=== PATIENT | female | born 1985 | race Caucasian/White ===

== ENCOUNTER 2017-04-28 15:18 | Emergency (ER) | payer OTHER ==
[2017-04-28] MEDS ORDERED: TOPICAL SKIN ADHESIVE 1 EACH AMP TOPICAL ONE (16:21)
[2017-04-28] MEDS ORDERED: GELATIN SPONGE,ABSORB (SMALL) 1 EACH SPONGE TOPICAL STA (16:36)
--- NOTE | 2017-04-28 16:44 | ED ---
Wound/Laceration HPI - General Chief Complaint: Wound/Laceration Stated Complaint: finger lac Time Seen by Provider: 04/28/17 16:04 Source: patient, RN notes reviewed, old records reviewed Mode of arrival: ambulatory Limitations: no limitations - History of Present Illness Initial Comments: This is a 31 year old female with right middle finger tip laceration from cutting food for dinner with a sharp knife. She reports she is , and that she is up to date on her tetanus shot. She reports it did not cut the nail. She states she has full range of motion of the finger. She reports full sensation in her hands and finger tips. - Related Data Previous Rx's Medication Instructions Recorded Ibuprofen [Motrin] 600 mg PO Q6HR PRN #20 tab 09/15/16 Allergies Allergy/AdvReac Type Severity Reaction Status Date / Time pumpkin Allergy Unknown Verified 04/28/17 15:22 pollen Allergy Unknown Uncoded 04/28/17 15:22 Review of Systems ROS Statement: Those systems with pertinent positive or pertinent negative responses have been documented in the HPI. ROS Other: All systems not noted in ROS Statement are negative. Constitutional: Denies: chills Eyes: Denies: eye pain ENT: Denies: ear pain Respiratory: Denies: cough, dyspnea Cardiovascular: Denies: chest pain, palpitations Endocrine: Denies: fatigue Gastrointestinal: Denies: abdominal pain, nausea Genitourinary: Denies: dysuria Musculoskeletal: Denies: back pain Skin: Denies: rash Neurological: Denies: headache Psychiatric: Denies: anxiety Hematological/Lymphatic: Denies: easy bleeding Past Medical History Past Medical History: No Reported History History of Any Multi-Drug Resistant Organisms: None Reported Past Surgical History: No Surgical Hx Reported Past Psychological History: No Psychological Hx Reported Smoking Status: Never smoker Past Alcohol Use History: None Reported Past Drug Use History: None Reported General Exam Limitations: no limitations General appearance: alert, in no apparent distress Head exam: Present: atraumatic, normocephalic, normal inspection Eye exam: Present: normal appearance, PERRL, EOMI. Absent: scleral icterus, conjunctival injection, periorbital swelling ENT exam: Present: normal exam, mucous membranes moist Neck exam: Present: normal inspection. Absent: tenderness, meningismus, lymphadenopathy Respiratory exam: Present: normal lung sounds bilaterally. Absent: respiratory distress, wheezes, rales, rhonchi, stridor Cardiovascular Exam: Present: regular rate, normal rhythm, normal heart sounds. Absent: systolic murmur, diastolic murmur, rubs, gallop, clicks GI/Abdominal exam: Present: soft, normal bowel sounds. Absent: distended, tenderness, guarding, rebound, rigid Extremities exam: Present: normal inspection, full ROM, normal capillary refill , other (1cm finger laceration on right middle finger tip. ). Absent: tenderness, pedal edema, joint swelling, calf tenderness Back exam: Present: normal inspection Neurological exam: Present: alert, oriented X3, CN II-XII intact Psychiatric exam: Present: normal affect, normal mood Skin exam: Present: warm, dry, intact, normal color. Absent: rash Course Vital Signs 04/28/17 04/28/17 15:20 17:00 Temperature 97.5 F L 98.0 F Pulse Rate 94 80 Respiratory 20 18 Rate Blood Pressure 126/78 128/68 O2 Sat by Pulse 99 98 Oximetry Medical Decision Making - Medical Decision Making This is a 31 year old female with right middle finger tip laceration from cutting food for dinner with a sharp knife. She reports she is , and that she is up to date on her tetanus shot. She reports it did not cut the nail. She states she has full range of motion of the finger. She reports full sensation in her hands and finger tips. Patient laceration measures 1cm, and is superficial. Evidence of skin flap. Patient was soaked in water and betadine , then patient help pressure over finger for 3 minutes. Afterward wound was adhered with dermabond, as sutures would not stay in the small laceration area. Patient advised to monitor for signs of infection and given wound care instruction. Patient understands treatment plan and will comply. Disposition Clinical Impression: Finger laceration Disposition: HOME SELF-CARE Condition: Good Instructions: Finger Laceration (ED), Skin Adhesive Care (ED) Additional Instructions: Do not remove the skin adhesive until it falls off on its own. Monitor for any signs of infection including redness swelling and drainage. Patient advised to follow-up with primary care provider if infection signs occur or to return to the emergency room if any alarming signs or symptoms occur. Referrals: Aniya Lynch MD [STAFF PHYSICIAN] - 1-2 days Time of Disposition: 16:43
[2017-04-28 17:03] VITALS: BP 128/68; PULSE 80; RESP 18; TEMP 98
== END 2017-04-28 17:03 | disposition home or self-care (01) ==
LOC: EC 15:18
DX: O9A.219 Injury, poisoning and certain other consequences of external causes complicating pregnancy, unspecified trimester (principal); S61.212A Laceration without foreign body of right middle finger without damage to nail, initial encounter; Z91.018 Allergy to other foods; Z91.09 Other allergy status, other than to drugs and biological substances; Z3A.00 Weeks of gestation of pregnancy not specified
CPT/HCPCS: 12001; 99283

== ENCOUNTER 2017-05-01 16:04 | Emergency (ER) | payer OTHER ==
[2017-05-01 16:47] VITALS: BP 113/68; PULSE 72; RESP 20; TEMP 99
--- NOTE | 2017-05-01 17:31 | ED ---
Skin/Abscess/FB HPI - General Chief complaint: Skin/Abscess/Foreign Body Stated complaint: Laceration Recheck Time Seen by Provider: 05/01/17 17:21 Source: patient, RN notes reviewed Mode of arrival: ambulatory Limitations: no limitations - History of Present Illness Initial comments: 31-year-old female presents for wound to her left middle finger. Patient states that she was seen here Dermabond. Patient states she notices Dermabond was starting to peel off and change in color so she thought maybe there is infection. She states has been minimal pain to the area. Patient denies any drainage or discharge denies any streaking any redness surrounding the area. Patient states that she just wanted to make sure that everything was okay. Patient denies any recent fever, chills, shortness of breath, chest pain, back pain, abdominal pain, nausea vomiting, numbness or tingling, dysuria or hematuria, constipation or diarrhea, headaches or visual changes, or any other current symptoms. - Related Data Previous Rx's Medication Instructions Recorded Ibuprofen [Motrin] 600 mg PO Q6HR PRN #20 tab 09/15/16 Allergies Allergy/AdvReac Type Severity Reaction Status Date / Time pumpkin Allergy Unknown Verified 04/28/17 15:22 pollen Allergy Unknown Uncoded 04/28/17 15:22 Review of Systems ROS Statement: Those systems with pertinent positive or pertinent negative responses have been documented in the HPI. ROS Other: All systems not noted in ROS Statement are negative. Past Medical History Past Medical History: No Reported History History of Any Multi-Drug Resistant Organisms: None Reported Past Surgical History: No Surgical Hx Reported Past Psychological History: No Psychological Hx Reported Smoking Status: Never smoker Past Alcohol Use History: None Reported Past Drug Use History: None Reported General Exam - General Exam Comments Initial Comments: General: The patient is awake and alert, in no distress, and does not appear acutely ill. Neck: The neck is supple, there is no tenderness. Cardiovascular: There is a regular rate and rhythm. No murmur, rub or gallop is appreciated. Respiratory: Lungs are clear to auscultation, respirations are non-labored, breath sounds are equal. No wheezes, stridor, rales, or rhonchi. Musculoskeletal: Sensation intact. The left upper x-ray. Patient does appear to have a Dermabond to the distal aspect of the left middle finger. Does appear to be healing well. There is no associated erythema and induration or drainage from the area noted. Full strength. Neurological: CN II-XII intact, There are no obvious motor or sensory deficits. Coordination appears grossly intact. Speech is normal. Skin: Skin is warm and dry and no rashes or lesions are noted. Psychiatric: Normal mood and affect. Limitations: no limitations Course Vital Signs 05/01/17 16:45 Temperature 99 F Pulse Rate 72 Respiratory 20 Rate Blood Pressure 113/68 O2 Sat by Pulse 98 Oximetry Medical Decision Making - Medical Decision Making 31-year-old female presents for healing wound to the left middle finger. This time we discussed continued care we discussed follow-up we discussed return parameters and all patient's questions. She stated she understood and she is having a plan. This time she will be discharged home. Disposition Clinical Impression: Finger laceration Disposition: HOME SELF-CARE Condition: Stable Instructions: Acute Wound Care (ED) Additional Instructions: Please use medication as discussed. Please follow up with family doctor if symptoms have not improved over the next two days. Please return to the emergency room if your symptoms increase or worsen or for any other concerns. Referrals: Aniya Lynch MD [STAFF PHYSICIAN] - 1-2 days Time of Disposition: 17:31
== END 2017-05-01 17:37 | disposition home or self-care (01) ==
LOC: EC 16:04
DX: S61.213D Laceration without foreign body of left middle finger without damage to nail, subsequent encounter (principal); Z91.048 Other nonmedicinal substance allergy status; Z91.018 Allergy to other foods
CPT/HCPCS: 99282

== ENCOUNTER → 2017-06-07 | Outpatient (CLI) | payer OTHER ==
--- NOTE | 2017-06-07 11:20 | US ---
EXAMINATION TYPE: US OB <= 14 wk fetus DATE OF EXAM: 06/07/2017 COMPARISON: NONE CLINICAL HISTORY: 31-year-old female Z36 CONFIRM DATES. Date of LMP: 03/25/17 Beta HcG (if available): not available EXAM PERFORMED: Transabdominal (TA) FINDINGS: EXAM MEASUREMENTS: GESTATIONAL AGE / DATING Physician Established: not yet established Dates by LMP: (10 weeks/4 days) EDC: 12/30/16 Dates by First Scan: 1st scan today Dates by Current Scan for: 8 weeks 4 days MATERNAL ANATOMY Uterus: 13.7 x 8.8 x 6.6cm Right Ovary: obscured by bowel gas and uterine size Left Ovary: obscured by bowel gas and uterine size Post CDS / Adnexa: wnl GESTATION / SURVEY CRL: 2.0cm (8 weeks/4 days) Yolk Sac (normal less than 6mm): 1mm M-mode shows no heart tones. Color Doppler shows no flow in the region of the fetus. WORKERS COMPENSATION ANALYST NOTES: demise. Multiple attempts at heart tones , no heart tones. Office called, patient sent to lab and told to call office after her labs drawn. IMPRESSION: Findings highly concerning for demise with missed . Recommend confirmation with appropr iate down trending serial beta-hCGs.
[2017-06-07 12:06] LABS: Glucose 80 mg/dL (74-99); Non-African American GFR(MDRD) >60 (>60 ml/min/1.73 sqM)
[2017-06-07 12:07] LABS: CH 31.8; CHCM 34.5; HCT 40.1 % (34.0-46.0); HDW 2.21; HGB 13.7 gm/dL (11.4-16.0); MCH 31.7 pg (25.0-35.0); MCHC 34.3 g/dL (31.0-37.0); MCV 92.4 fL (80.0-100.0); RBC 4.34 m/uL (3.80-5.40); RDW 12.5 % (11.5-15.5); WBC 7.6 k/uL (3.8-10.6)
[2017-06-07 12:39] LABS: Hepatitis B Surface Ag Index 0.04
[2017-06-07 12:56] LABS: HCG,Quantitative Serum 57439.3 mIU/mL
[2017-06-07 15:27] LABS: Treponemal Ab Non-Reactive (Non-Reactive)
[2017-06-08 06:39] LABS: Toxoplasma Antibody (IgG) <3.0 IU/mL (<7.2)
== END | disposition home or self-care (01) ==
LOC: RADUSWWP 10:17
PROVIDERS: ATTEND Obstetrics & Gynecology
DX: Z34.81 Encounter for supervision of other normal pregnancy, first trimester (principal); Z3A.08 8 weeks gestation of pregnancy
CPT/HCPCS: 36415; 76801; 82565; 82947; 84702; 85027; 86762; 86777; 86778; 86780; 86850; 86900; 86901; 87340; 87390; 87491; 87591

== ENCOUNTER → 2017-06-11 | Outpatient (CLI) | payer OTHER | END | disposition home or self-care (01) | LOC: LABWHC1 11:08 | PROVIDERS: ATTEND Obstetrics & Gynecology | DX: O03.9 Complete or unspecified spontaneous abortion without complication (principal) | CPT/HCPCS: 36415; 84702 ==

== ENCOUNTER → 2017-06-20 | Outpatient (CLI) | payer OTHER | END | disposition home or self-care (01) | LOC: LABWHC1 11:49 | PROVIDERS: ATTEND Obstetrics & Gynecology | DX: O03.9 Complete or unspecified spontaneous abortion without complication (principal) | CPT/HCPCS: 36415; 84702 ==

== ENCOUNTER → 2017-07-02 | Outpatient (CLI) | payer OTHER | END | disposition home or self-care (01) | LOC: LABWHC1 12:03 | PROVIDERS: ATTEND Obstetrics & Gynecology | DX: O03.9 Complete or unspecified spontaneous abortion without complication (principal) | CPT/HCPCS: 36415; 84702 ==

== ENCOUNTER → 2017-07-22 | Outpatient (CLI) | payer OTHER ==
[2017-07-22 12:51] LABS: Basophils % (A) 0 %; CH 31.9; CHCM 33.4; Eosinophils # (A) 0.1 k/uL (0-0.7); Eosinophils % (A) 3 %; HCT 41.8 % (34.0-46.0); HDW 2.37; HGB 14.4 gm/dL (11.4-16.0); Luc # (Auto) 0.11; Luc % (Auto) 2; Lymphocytes # (A) 1.1 k/uL (1.0-4.8); Lymphocytes % (A) 22 %; MCHC 34.5 g/dL (31.0-37.0); MCV 95.8 fL (80.0-100.0); Monocytes # (A) 0.3 k/uL (0-1.0); Monocytes % (A) 7 %; Neutrophils # (A) 3.4 k/uL (1.3-7.7); Neutrophils % (A) 66 %; RBC 4.37 m/uL (3.80-5.40); RDW 12.6 % (11.5-15.5); WBC 5.1 k/uL (3.8-10.6); WBC (Perox) 5.35
[2017-07-22 13:02] LABS: Hemoglobin A1C 4.9 % (4.2-6.1)
[2017-07-22 13:32] LABS: ALT 37 U/L (9-52); AST 19 U/L (14-36); Alkaline Phosphatase 49 U/L (38-126); Anion Gap 9 mmol/L; Blood Urea Nitrogen 11 mg/dL (7-17); Carbon Dioxide 24 mmol/L (22-30); Chloride 107 mmol/L (98-107); Cholesterol 168 mg/dL (<200); Glucose 89 mg/dL (74-99); HDL Cholesterol 83 mg/dL (40-60); Non-African American GFR(MDRD) >60 (>60 ml/min/1.73 sqM); Potassium 4.1 mmol/L (3.5-5.1); Sodium 140 mmol/L (137-145); Total Bilirubin 0.9 mg/dL (0.2-1.3); Total Protein 6.8 g/dL (6.3-8.2)
== END | disposition home or self-care (01) ==
LOC: LABWHC1 11:59
PROVIDERS: ATTEND Obstetrics & Gynecology
DX: O03.9 Complete or unspecified spontaneous abortion without complication (principal); O16.9 Unspecified maternal hypertension, unspecified trimester; O24.919 Unspecified diabetes mellitus in pregnancy, unspecified trimester; Z3A.00 Weeks of gestation of pregnancy not specified
CPT/HCPCS: 36415; 80053; 80061; 83036; 84443; 84702; 85025

== ENCOUNTER 2017-09-15 18:25 | Emergency (ER) | payer OTHER ==
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
--- NOTE | 2017-09-15 21:58 | US ---
EXAMINATION TYPE: US OB <=14 wks transvag DATE OF EXAM: 09/15/2017 COMPARISON: NONE CLINICAL HISTORY: Lower abdominal cramping. Recent miscarriage in the summer and started cramping wit h this and was worried, no bleeding EXAM PERFORMED: OBTA/OBTV EXAM MEASUREMENTS: GESTATIONAL AGE / DATING Physician Established: Not yet established Dates by LMP: (7 weeks/2 days) EDC: 05/02/2018 Dates by First Scan: RECEIVING TELLER Dates by Current Scan for: (6 weeks/3 days) EDC: 05/08/2018 MATERNAL ANATOMY Uterus: 7.5 x 5.7 x 5.9cm, retroverted yolk sac is identified with in a gestational sac in the uterus Right Ovary: 3.3 x 2.8 x 2.8cm Left Ovary: 2.5 x 2.0 x 1.7cm Post CDS / Adnexa: wnl Presence of free fluid: no Presence of corpus luteal cyst: yes, right ovary = 2.0cm Presence of subchorionic bleed: no GESTATION / SURVEY CRL: 0.6 (6 weeks/3 days) MSD: wnl Yolk Sac (normal less than 6mm): 0.2cm Heart Rate: 118 bpm Rhythm: Normal IUP: Viable IUP Date of LMP: 07/26/2017 Beta HcG (if available): 86209 IMPRESSION: Embryo is identified with a crown-rump length of 0.64 cm corresponding to a 6 week 3 day gestation wi th a heart rate of 118 bpm
[2017-09-15 22:17] VITALS: BP 100/65; PULSE 76; RESP 16; TEMP 98.9
== END 2017-09-15 22:16 | disposition home or self-care (01) ==
LOC: EC 18:25
DX: O99.89 Other specified diseases and conditions complicating pregnancy, childbirth and the puerperium (principal); R10.30 Lower abdominal pain, unspecified; Z3A.01 Less than 8 weeks gestation of pregnancy; Z91.018 Allergy to other foods; Z91.048 Other nonmedicinal substance allergy status
CPT/HCPCS: 36415; 76801; 76817; 84702; 99284

== ENCOUNTER 2017-11-29 17:19 | Emergency (ER) | payer OTHER ==
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
[2017-11-29 19:03] LABS: Appearance,Urine Cloudy (Clear); Bacteria,Urine Occasional /hpf; Bilirubin,Urine Negative (Negative); Blood,Urine Negative (Negative); Color,Urine Yellow; Glucose,Urine (UA) Negative (Negative); Ketones,Urine Negative (Negative); Leukocyte Esterase,Urine Negative (Negative); Mucus,Urine Rare /hpf; Nitrite,Urine Negative (Negative); PH, Urine 6.5 (5.0-8.0); Protein,Urine Negative (Negative); RBC,Urine 1 /hpf (0-5); Specific Gravity,Urine 1.007 (1.001-1.035); Squamous Epithelial Cell,Urine 6 /hpf (0-4); Urobilinogen,Urine <2.0 mg/dL (<2.0); WBC,Urine 1 /hpf (0-5)
[2017-11-29 19:31] VITALS: BP 115/78; PULSE 87; RESP 20; TEMP 98.7
== END 2017-11-29 19:30 | disposition home or self-care (01) ==
LOC: EC 17:19
DX: O26.892 Other specified pregnancy related conditions, second trimester (principal); R10.2 Pelvic and perineal pain; O20.9 Hemorrhage in early pregnancy, unspecified; O99.89 Other specified diseases and conditions complicating pregnancy, childbirth and the puerperium; R00.2 Palpitations; Z79.899 Other long term (current) drug therapy; Z91.018 Allergy to other foods; Z91.09 Other allergy status, other than to drugs and biological substances; Z3A.18 18 weeks gestation of pregnancy
CPT/HCPCS: 81001; 99284

== ENCOUNTER 2018-01-10 20:50 | Outpatient (CLI) | payer OTHER ==
[2018-01-10 21:50] VITALS: BP 111/68; PULSE 80; RESP 16; TEMP 98.1
[2018-01-10 21:56] LABS: Appearance,Urine Clear (Clear); Bilirubin,Urine Negative (Negative); Blood,Urine Negative (Negative); Color,Urine Light Yellow; Glucose,Urine (UA) Negative (Negative); Ketones,Urine Negative (Negative); Leukocyte Esterase,Urine Negative (Negative); Nitrite,Urine Negative (Negative); Protein,Urine Negative (Negative); Specific Gravity,Urine 1.005 (1.001-1.035); Urobilinogen,Urine <2.0 mg/dL (<2.0)
--- NOTE | 2018-01-11 10:33 | P.MSEPDOC ---
Presenting Problems - Arrival Data Date of Arrival on Unit: 01/10/18 Time of Arrival on Unit: 20:52 Mode of Transport: Wheelchair - Complaint OB-Reason for Admission/Chief Complaint: Pain Comment: pt complains of cramping since yesterday. Medical History - Information : 4 Para: 2 Term: 2 : 0 Abortions: Spontaneous or Elective: 1 Number of Living Children: 2 - Gestational Age Gestational Age by LENIN (wks/days): 23 Weeks and 1 Days Review of Systems - Review of Systems Constitutional: No problems Breast: No problems ENT: No problems Cardiovascular: No problems Respiratory: No problems Gastrointestinal: No problems Genitourinary: No problems Musculoskeletal: No problems Neurological: No problems Skin: No problems Vital Signs - Temperature Temperature: 98.1 F Temperature Source: Oral - Pulse Right Sitting Brachial Pulse Rate: 80 Pulse Assessment Method: Automatic Cuff - Respirations Respiratory Rate: 16 Oxygen Delivery Method: Room Air O2 Sat by Pulse Oximetry: 100 - Blood Pressure Right Arm Sitting Blood Pressure: 111/68 Blood Pressure Mean: 82 Blood Pressure Source: Automatic Cuff Medical Screen Scoring (Pre) - Cervical Exam Dilation: 0 cm = 0 Effacement: Exam Deferred Membranes: Intact - Uterine Contractions Frequency: N/A Duration: N/A Intensity: N/A - Maternal Vital Signs Maternal Temperature: N/A Maternal Blood Pressure: N/A Signs of Preeclampsia: N/A Maternal Respirations: N/A - Pain Assessment Pain Location and Character: Lower, Abdomen Pain Scale Used: Numeric (1 - 10) Pain Intensity: 3 Pain Management Goal: 0 Pain Description: Cramping Pain Radiation Location: 0 Pain Frequency: Intermittent Pain Duration: 2 Pain Duration Units: Days Pain Behavior: None Exhibited Effects of Pain: 0 Pain Aggravating Factors: None Non-Pharmacological Interventions: Darkened Room, Emotional/Spiritual Support - Maternal Trauma Maternal Trauma: N/A - Assessment Baseline FHR: 150 Heart Rate - NICHD Category: Category I (Normal) = 0 Position: N/A Station: N/A - Total Score Total Score (Pre): 0 - Level of Risk Level of Risk: N/A Physician Notification (Pre) - Physician Notified Physician Notified Date: 01/10/18 Physician/Practitioner Notifed:: dr jose Spoke With: dr jose New Order Received: Yes - Notification Comment Comment: ua, ffn, call back with results Disposition - Disposition OB Disposition: Discharge to home Discharge Date: 01/10/18 Discharge Time: 22:15 I agree with the RN Medical Screening Exam: Yes Risk & Benefit of care provided described in d/c instruction: Yes Diagnosis: UNSPECIFIED ABDOMINAL PAIN (IUP 23 weeks)
== END 2018-01-10 22:15 | disposition home or self-care (01) ==
LOC: FBPOP 20:50
PROVIDERS: ATTEND Obstetrics & Gynecology
DX: O99.89 Other specified diseases and conditions complicating pregnancy, childbirth and the puerperium (principal); R10.9 Unspecified abdominal pain; Z3A.23 23 weeks gestation of pregnancy
CPT/HCPCS: 81003; G0463; 99213

== ENCOUNTER 2018-01-25 22:15 | Outpatient (CLI) | payer OTHER ==
[2018-01-25 23:13] VITALS: BP 118/70; PULSE 84; RESP 16; TEMP 97.3
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
== END 2018-01-25 22:58 | disposition home or self-care (01) ==
LOC: FBPOP 22:15
PROVIDERS: ATTEND Obstetrics & Gynecology
DX: O99.89 Other specified diseases and conditions complicating pregnancy, childbirth and the puerperium (principal); R10.9 Unspecified abdominal pain; Z3A.25 25 weeks gestation of pregnancy
CPT/HCPCS: 99213

== ENCOUNTER 2018-02-02 10:04 | Emergency (ER) | payer OTHER ==
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
[2018-02-02 12:10] VITALS: BP 118/62; PULSE 89; RESP 18; TEMP 98.4
== END 2018-02-02 12:10 | disposition home or self-care (01) ==
LOC: EC 10:04
DX: O99.512 Diseases of the respiratory system complicating pregnancy, second trimester (principal); J02.9 Acute pharyngitis, unspecified; Z3A.26 26 weeks gestation of pregnancy; Z91.018 Allergy to other foods; Z91.048 Other nonmedicinal substance allergy status
CPT/HCPCS: 87081; 87430; 99282

== ENCOUNTER 2018-03-10 13:08 | Outpatient (CLI) | payer OTHER ==
[2018-03-10 13:36] VITALS: BP 113/64; PULSE 96; RESP 18; TEMP 97.4
--- NOTE | 2018-03-20 06:58 | P.MSEPDOC ---
Presenting Problems - Arrival Data Date of Arrival on Unit: 03/10/18 Time of Arrival on Unit: 13:08 Mode of Transport: Ambulatory - Complaint OB-Reason for Admission/Chief Complaint: Possible Onset of Labor Medical History - Information : 4 Para: 2 Term: 2 : 0 Abortions: Spontaneous or Elective: 1 Number of Living Children: 2 - Gestational Age Gestational Age by LENIN (wks/days): 31 Weeks and 4 Days Review of Systems - Review of Systems Constitutional: No problems Breast: No problems ENT: No problems Cardiovascular: No problems Respiratory: No problems Gastrointestinal: No problems Genitourinary: No problems Musculoskeletal: No problems Neurological: No problems Skin: No problems Vital Signs - Temperature Temperature: 97.4 F Temperature Source: Temporal Artery Scan - Pulse Right Pulse Rate: 96 Pulse Assessment Method: Automatic Cuff - Respirations Respiratory Rate: 18 Oxygen Delivery Method: Room Air O2 Sat by Pulse Oximetry: 97 - Blood Pressure Right Arm Blood Pressure: 113/64 Blood Pressure Mean: 80 Blood Pressure Source: Automatic Cuff Medical Screen Scoring (Pre) - Cervical Exam Dilation: 0 cm = 0 Membranes: Intact - Uterine Contractions Frequency: N/A - Maternal Vital Signs Maternal Temperature: N/A Maternal Blood Pressure: N/A Signs of Preeclampsia: N/A Maternal Respirations: N/A - Pain Assessment Pain Scale Used: Numeric (1 - 10) Pain Intensity: 0 - Assessment NST: Reactive - Total Score Total Score (Pre): 0 Physician Notification (Pre) - Physician Notified Physician Notified Date: 03/10/18 Physician Notified Time: 14:15 Physician/Practitioner Notifed:: dr newberry Spoke With: dr newberry - Notification Comment Comment: order to discharge home with follow up with dr jose Disposition - Disposition OB Disposition: Triage Discharge Date: 03/10/18 Discharge Time: 14:20 I agree with the RN Medical Screening Exam: Yes Risk & Benefit of care provided described in d/c instruction: Yes Diagnosis: FALSE LABOR BEFORE 37 COMPLETED WEEKS OF GEST, THIRD TRI
== END 2018-03-10 14:20 | disposition home or self-care (01) ==
LOC: FBPOP 13:08
PROVIDERS: ATTEND Obstetrics & Gynecology
DX: O47.03 False labor before 37 completed weeks of gestation, third trimester (principal); Z3A.31 31 weeks gestation of pregnancy
CPT/HCPCS: 59025; G0463; 99213

== ENCOUNTER 2018-04-01 00:19 | Outpatient (CLI) | payer OTHER ==
[2018-04-01 00:52] VITALS: BP 106/61; PULSE 102; RESP 16; TEMP 98.5
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
== END 2018-04-01 01:25 | disposition home or self-care (01) ==
LOC: FBPOP 00:19
PROVIDERS: ATTEND Obstetrics & Gynecology
DX: O47.03 False labor before 37 completed weeks of gestation, third trimester (principal); Z3A.35 35 weeks gestation of pregnancy
CPT/HCPCS: 59025; G0463; 99213

== ENCOUNTER 2018-04-07 11:28 | Emergency (ER) | payer OTHER ==
[2018-04-07 11:31] VITALS: TEMP 98.2
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
[2018-04-07 13:12] VITALS: BP 108/58; PULSE 84; RESP 16
== END 2018-04-07 13:12 | disposition home or self-care (01) ==
LOC: EC 11:28
DX: O99.89 Other specified diseases and conditions complicating pregnancy, childbirth and the puerperium (principal); H61.22 Impacted cerumen, left ear; Z3A.36 36 weeks gestation of pregnancy; Z91.018 Allergy to other foods; Z91.09 Other allergy status, other than to drugs and biological substances
CPT/HCPCS: 69210; 99282

== ENCOUNTER 2018-04-23 23:00 | Outpatient (CLI) | payer OTHER ==
[2018-04-24 00:36] VITALS: BP 104/61; PULSE 109; RESP 16; TEMP 97.9
--- NOTE | 2018-04-29 06:36 | P.MSEPDOC ---
Presenting Problems - Arrival Data Date of Arrival on Unit: 04/23/18 Time of Arrival on Unit: 23:02 Mode of Transport: Ambulatory - Complaint OB-Reason for Admission/Chief Complaint: Possible Onset of Labor Comment: cntrx every 15-20 mins Medical History - Information : 4 Para: 2 Term: 2 : 0 Abortions: Spontaneous or Elective: 1 Number of Living Children: 2 - Gestational Age Gestational Age by LENIN (wks/days): 38 Weeks and 6 Days Review of Systems - Review of Systems Constitutional: No problems Breast: No problems ENT: No problems Cardiovascular: No problems Respiratory: No problems Gastrointestinal: No problems Genitourinary: No problems Musculoskeletal: No problems Neurological: No problems Skin: No problems Vital Signs - Temperature Temperature: 97.9 F Temperature Source: Temporal Artery Scan - Pulse Right Pulse Rate: 109 Pulse Assessment Method: Pulse Oximetry - Respirations Respiratory Rate: 16 O2 Sat by Pulse Oximetry: 95 - Blood Pressure Right Arm Blood Pressure: 104/61 Blood Pressure Mean: 75 Blood Pressure Source: Automatic Cuff Medical Screen Scoring (Pre) - Cervical Exam Dilation: 1-3 cm = 1 Membranes: Intact - Uterine Contractions Frequency: > 5 minutes apart = 1 Duration: > 40 seconds = 2 Intensity: N/A - Maternal Vital Signs Maternal Temperature: N/A Signs of Preeclampsia: N/A Maternal Respirations: N/A - Pain Assessment Pain Location and Character: Abdomen Pain Scale Used: Numeric (1 - 10) Pain Intensity: 6 Pain Management Goal: 3 Pain Description: *Acute, Cramping Pain Frequency: Intermittent Pain Duration: 3 Pain Duration Units: Hours Pain Behavior: Vocalization Pain Aggravating Factors: Contractions Pharmacological Interventions: PRN Medication Non-Pharmacological Interventions: Position/Reposition - Assessment Baseline FHR: 140 Heart Rate - NICHD Category: Category II (Indeterminate) = 3 - Total Score Total Score (Pre): 7 - Level of Risk Level of Risk: Medium (6-9) Medical Screen Scoring (Post) - Cervical Exam Dilation: 1-3 cm = 1 Membranes: Intact - Uterine Contractions Frequency: > 5 minutes apart = 1 Duration: > 40 seconds = 2 Intensity: N/A - Maternal Vital Signs Maternal Temperature: N/A Signs of Preeclampsia: N/A - Assessment Heart Rate: 140 Heart Rate - NICHD Category: Category I (Normal) = 0 NST: Reactive Position: N/A - Total Score Total Score (Post): 4 - Post Treatment Level of Risk Post Treatment Level of Risk: Low (0-5) Physician Notification (Post) - Physician Notified Physician Notified Date: 04/24/18 Physician Notified Time: 00:18 Physician/Practitioner Notified:: Dr Garduno - Notification Comment Comment: reported on c/o irreg cntrx every 15-20 mins, possible food poisoning 2 days ago. reported on unchanged vag exam since appt this am, fhts, cntrx pattern, vitals. pt is scheduled for IOL on saturday am (tomorrow). orders to d/c home at this time. Disposition - Disposition OB Disposition: Discharge to home Discharge Date: 04/24/18 Discharge Time: 00:32 I agree with the RN Medical Screening Exam: Yes Risk & Benefit of care provided described in d/c instruction: Yes Diagnosis: FALSE LABOR AT OR AFTER 37 COMPLETED WEEKS OF GESTATION
== END 2018-04-24 00:32 | disposition home or self-care (01) ==
LOC: FBPOP 23:00
PROVIDERS: ATTEND Obstetrics & Gynecology
DX: O47.1 False labor at or after 37 completed weeks of gestation (principal); Z3A.38 38 weeks gestation of pregnancy
CPT/HCPCS: 59025; G0463; 99213

== ENCOUNTER 2018-04-25 06:42 | Inpatient (IN) | payer OTHER ==
[2018-04-25] MEDS ORDERED: OXYTOCIN 10 UNIT/ML 1 ML VIAL IM PRN (06:56)
[2018-04-25] MEDS ORDERED: CARBOPROST TROMETHAMINE 250 MCG/ML 1 ML AMP IM PRN (06:56)
[2018-04-25] MEDS ORDERED: METHYLERGONOVINE 0.2 MG/ML 1 ML AMP IM PRN (06:56)
[2018-04-25] MEDS ORDERED: LIDOCAINE 1% (PF) 10 MG/ML (30 ML SDV) SQ PRN (06:56)
[2018-04-25] MEDS ORDERED: TERBUTALINE 1 MG/ML VIAL SQ PRN (06:56)
[2018-04-25] MEDS ORDERED: LACTATED RINGERS 1,000 ML IV SCH (07:00)
[2018-04-25 07:26] VITALS: BMI 28.5
[2018-04-25] MEDS: OXYTOCIN 20 UNITS/1000 ML NS 1,000 ML IV SCH ×2 (07:33→22:24)
[2018-04-25 07:35] LABS: Basophils % (A) 0 %; Eosinophils # (A) 0.1 k/uL (0-0.7); Eosinophils % (A) 1 %; HCT 34.7 % (34.0-46.0); HGB 11.5 gm/dL (11.4-16.0); Lymphocytes # (A) 1.5 k/uL (1.0-4.8); Lymphocytes % (A) 20 %; MCH 29.7 pg (25.0-35.0); MCHC 33.2 g/dL (31.0-37.0); MCV 89.5 fL (80.0-100.0); Mean Platelet Volume 7.4; Monocytes # (A) 0.7 k/uL (0-1.0); Monocytes % (A) 9 %; Neutrophils % (A) 66 %; Platelet Count 241 k/uL (150-450); RBC 3.87 m/uL (3.80-5.40); RDW 14.3 % (11.5-15.5); WBC 7.6 k/uL (3.8-10.6)
[2018-04-25] MEDS ORDERED: SUCCINYLCHOLINE CHLORIDE 100 MG/5 ML SYR IV ONE (08:29)
[2018-04-25] MEDS ORDERED: ceFAZolin 1,000 MG VIAL ONE (08:29)
[2018-04-25] MEDS ORDERED: OXYTOCIN 10 UNIT/ML 1 ML VIAL ONE (08:29)
[2018-04-25] MEDS ORDERED: ONDANSETRON 4 MG/2 ML VIAL ONE (08:29)
[2018-04-25] MEDS ORDERED: ePHEDrine SULFATE/0.9% NACL/PF 50 MG/5 ML SYRINGE IV ONE (08:29)
[2018-04-25] MEDS ORDERED: fentaNYL (PF) 50 MCG/ML 2 ML AMP ONE (08:29)
[2018-04-25] MEDS ORDERED: PROPOFOL 10 MG/ML 20 ML VIAL IV ONE (08:29)
[2018-04-25] MEDS ORDERED: HYDROmorphone (PF) 1 MG/ML ONE (08:29)
[2018-04-25] MEDS ORDERED: NALOXONE 0.4 MG/ML 1 ML VIAL IV PRN (08:59)
[2018-04-25] MEDS ORDERED: METOCLOPRAMIDE 5 MG/ML 2 ML VIAL IVP PRN (08:59)
[2018-04-25] MEDS ORDERED: ZOLPIDEM 5 MG TAB PO PRN (08:59)
[2018-04-25] MEDS ORDERED: diphenhydrAMINE 50 MG CAP PO PRN (08:59)
[2018-04-25] MEDS ORDERED: ONDANSETRON 4 MG/2 ML VIAL IVP PRN (08:59)
[2018-04-25] MEDS ORDERED: ACETAMINOPHEN TAB 325 MG TAB PO PRN (08:59)
[2018-04-25] MEDS ORDERED: diphenhydrAMINE 50 MG/ML 1 ML VIAL IVP PRN ×2 (08:59)
[2018-04-25] MEDS ORDERED: diphenhydrAMINE 25 MG CAP PO PRN (08:59)
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
[2018-04-25] MEDS: KETOROLAC 30 MG/ML 1 ML VIAL IVP PRN ×2 (09:09→22:44)
--- NOTE | 2018-04-25 09:11 | P.OP ---
Date of Procedure: 04/25/18 Preoperative Diagnosis: Intrauterine at term: Bloody fluid at artificial rupture of membranes and loss of cardiac activity on monitor Postoperative Diagnosis: Same Procedure(s) Performed: Primary low-transverse section from Pfannenstiel Anesthesia: WILIAM Surgeon: Aldo Novak Wringer Operator #1: Rachell Beckett Estimated Blood Loss (ml): 500 Pathology: other (Placenta) Condition: stable Disposition: floor Operative Findings: Female in special care nursery at this time Description of Procedure: Patient was taken immediately to the operating suite where a general anesthetic was found be adequate. She was prepped and draped rapidly during this process and draped in the normal sterile fashion. Pfannenstiel skin incision was made this incision was then carried through to underlying layer of fascia fascia was then extended opening laterally and superior and inferior aspects of this incision were then bluntly dissected. Blunt dissection through the peritoneum was made bladder blade was placed and a knife was used to incise uterus this opening was then extended bluntly and head was atraumatic the delivered followed by the remainder the baby. Umbilical cord was rapidly clamped and cut and nursery personnel was present to assume care. Special care nursery and anesthesia assume care of the baby. Once this was completed uterus was exteriorized cleared of clots and debris and closed in 1 layer with 0 Vicryl suture. Once excellent hemostasis was obtained blood and debris was suctioned from the posterior cul-de-sac and uterus was reinserted into the abdomen. Peritoneal layer was then closed with 0 Vicryl suture fascial layer was closed [place] suture [place] were used to close incision. Sponge, lap, needle counts were correct 2. Patient was then taken to the recovery room in stable and satisfactory condition. On inspection of the placenta, umbilical cord essentially had from what appeared to be potentially membranous insertion point potentially also having questionable vasa previa but I can not be certain as no placenta or cord was palpated during my digital exam nor was it noted on prior exams or on u/s. Placenta had previously been noted to be fundal on prior ultrasounds.
[2018-04-25] MEDS: HYDROmorphone PCA 5 MG/25 ML SYRINGE IV PRN ×2 (09:57→21:42)
[2018-04-25] MEDS: SENNOSIDES-DOCUSATE SODIUM 1 EACH TAB PO SCH (21:15)
[2018-04-25] MEDS: LACTATED RINGERS 1,000 ML IV SCH (22:23)
[2018-04-26] MEDS: LACTATED RINGERS 1,000 ML IV SCH ×3 (01:50→20:20)
[2018-04-26] MEDS: KETOROLAC 30 MG/ML 1 ML VIAL IVP PRN ×2 (04:26→10:52)
[2018-04-26 08:03] LABS: Basophils % (A) 0 %; Eosinophils # (A) 0.1 k/uL (0-0.7); Eosinophils % (A) 1 %; HCT 31.7 % (34.0-46.0); HGB 10.2 gm/dL (11.4-16.0); Lymphocytes # (A) 1.5 k/uL (1.0-4.8); Lymphocytes % (A) 14 %; MCH 29.3 pg (25.0-35.0); MCHC 32.3 g/dL (31.0-37.0); MCV 90.8 fL (80.0-100.0); Mean Platelet Volume 7.7; Monocytes # (A) 0.8 k/uL (0-1.0); Monocytes % (A) 7 %; Neutrophils # (A) 8.6 k/uL (1.3-7.7); Neutrophils % (A) 76 %; Platelet Count 214 k/uL (150-450); RBC 3.49 m/uL (3.80-5.40); RDW 14.5 % (11.5-15.5); WBC 11.3 k/uL (3.8-10.6)
--- NOTE | 2018-04-26 09:04 | P.PNOBGPC ---
Subjective - Subjective Principal diagnosis: Postop day 1 Interval history: [place] is overall doing well. She is involuting, voiding, and she is tolerating her diet. At this time of incisional pain she voices no complaints. Baby was transferred to [facility] is current care and NICU. Patient reports: Reports appetite normal, Reports voiding normally, Reports pain well controlled, Reports ambulating normally [place]: transported ([facility]) Objective - Vital Signs Latest vital signs: Vital Signs Temp Pulse Resp BP Pulse Ox 04/26/18 04:00 98.0 F 98 18 122/79 100 04/26/18 00:00 98.1 F 72 18 104/64 100 04/25/18 20:30 98.0 F 80 18 106/66 100 04/25/18 16:00 98.3 F 78 20 106/56 04/25/18 12:00 90 16 131/56 04/25/18 11:08 69 14 104/68 04/25/18 10:38 71 14 98/54 04/25/18 10:08 68 14 104/60 04/25/18 09:53 79 16 104/67 04/25/18 09:38 102 H 18 119/73 04/25/18 09:23 91 16 119/68 04/25/18 09:08 97.9 F 88 18 110/64 Intake and Output 04/25/18 04/26/18 04/26/18 22:59 06:59 14:59 Intake Total 240 Output Total 2000 Balance -1760 Intake: Oral 240 Output: Urine 2000 - Exam Lungs: bilateral: normal Chest: Normal S1, Normal S2 Extremities: Present: normal Abdomen: Present: normal appearance, soft. Absent: distention, tenderness Incision: Present: normal, dry, intact Uterus: Present: normal, firm - Labs Labs: Abnormal Lab Results - Last 24 Hours (Table) 04/26/18 Range/Units 07:21 WBC 11.3 H (3.8-10.6) k/uL RBC 3.49 L (3.80-5.40) m/uL Hgb 10.2 L (11.4-16.0) gm/dL Hct 31.7 L (34.0-46.0) % Neutrophils # 8.6 H (1.3-7.7) k/uL
[2018-04-26] MEDS ORDERED: HYDROcodone/APAP 5-325MG 1 EACH TAB PO PRN (09:15)
[2018-04-26] MEDS: IBUPROFEN 600 MG TAB PO PRN (17:46)
[2018-04-26] MEDS: SENNOSIDES-DOCUSATE SODIUM 1 EACH TAB PO SCH ×2 (19:49→20:20)
[2018-04-26] MEDS: HYDROcodone/APAP 5-325MG 1 EACH TAB PO PRN ×2 (19:49→23:38)
[2018-04-26] MEDS: OXYTOCIN 20 UNITS/1000 ML NS 1,000 ML IV SCH (20:21)
[2018-04-27] MEDS: LACTATED RINGERS 1,000 ML IV SCH (05:04)
--- NOTE | 2018-04-27 06:41 | P.DS ---
Providers Date of admission: 04/25/18 06:42 Expected date of discharge: 04/27/18 Attending physician: Aldo Novak Primary care physician: Stated None Hospital Course: Is doing much better today. Her pain is better controlled on oral pills. Vital signs are stable and afebrile. Heart regular, lungs clear, extremities without pain. Abdomen soft uterus is firm her incision is clean dry and intact. We'll plan to remove jean-paul today and apply Steri-Strips. She'll follow up with me in 1 week for reevaluation. Prescription for Motrin and Sun[place] have been provided. All the questions are answered for her at this time and she will be discharged to home at this time. [place] were removed and Steri -Strips were placed by myself. No problems or complications. Baby sounds like she is doing better at [facility] and we will have patient return in 1 week. Patient Condition at Discharge: Good Plan - Discharge Summary Discharge Rx Participant: No New Discharge Prescriptions: New HYDROcodone/APAP 5-325MG [[place] 5-325] 1 tab PO Q4HR PRN #30 tab PRN Reason: Pain Ibuprofen [Motrin] 600 mg PO Q6HR PRN #30 tab PRN Reason: Pain No Action Pnv,Calcium 72/Iron/Folic Acid [ Plus Tablet] 1 tab PO DAILY Discharge Medication List Pnv,Calcium 72/Iron/Folic Acid [ Plus Tablet] 1 tab PO DAILY 11/10/17 [ History] HYDROcodone/APAP 5-325MG [[place] 5-325] 1 tab PO Q4HR PRN #30 tab 04/26/18 [Rx] Ibuprofen [Motrin] 600 mg PO Q6HR PRN #30 tab 04/26/18 [Rx] Follow up Appointment(s)/Referral(s): Aldo Novak DO [Doctor of Osteopathic Medicine] - 1 Week Activity/Diet/Wound Care/Special Instructions: No heavy lifting, limit stairs and driving, and pelvic rest. If any high temperatures, heavy bleeding, or severe pain call my office Discharge Disposition: HOME SELF-CARE
[2018-04-27] MEDS: IBUPROFEN 600 MG TAB PO PRN (07:46)
[2018-04-27] MEDS: SENNOSIDES-DOCUSATE SODIUM 1 EACH TAB PO SCH (07:47)
[2018-04-27 07:59] VITALS: BP 113/62; PULSE 80; RESP 18; TEMP 98.1
== END 2018-04-27 09:15 | disposition home or self-care (01) | DRG 766 ==
LOC: 4FBP 06:42
PROVIDERS: ADMIT Obstetrics & Gynecology; ATTEND Obstetrics & Gynecology
PROC: 3E033VJ Introduction of Other Hormone into Peripheral Vein, Percutaneous Approach (ICD-10-PCS; 2018-04-25)
PROC: 10907ZC Drainage of Amniotic Fluid, Therapeutic from Products of Conception, Via Natural or Artificial Opening (ICD-10-PCS; 2018-04-25)
PROC: 10D00Z1 Extraction of Products of Conception, Low, Open Approach (ICD-10-PCS; principal; 2018-04-25 08:29)
DX: O76 Abnormality in fetal heart rate and rhythm complicating labor and delivery (principal); Z3A.39 39 weeks gestation of pregnancy; Z37.0 Single live birth; Z79.899 Other long term (current) drug therapy; Z91.030 Bee allergy status; Z91.018 Allergy to other foods
CPT/HCPCS: 85025; 86850; 86900; 86901; 88307; 88313

== ENCOUNTER 2019-12-19 23:42 | Emergency (ER) | payer OTHER ==
[2019-12-19 23:53] VITALS: BP 120/72; PULSE 69; RESP 20; TEMP 98.2
--- NOTE | 2019-12-20 00:31 | XR ---
EXAMINATION TYPE: XR hand complete RT DATE OF EXAM: 12/20/2019 COMPARISON: NONE HISTORY: Pain TECHNIQUE: 3 views FINDINGS: Metacarpals are intact. I see no fracture nor dislocation. Joint spaces are normal. There a re no erosions. IMPRESSION: Negative exam. No sign of inflammatory arthritis. No fracture.
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
== END 2019-12-20 01:01 | disposition home or self-care (01) ==
LOC: EC 23:42
DX: M79.641 Pain in right hand (principal); M79.644 Pain in right finger(s); M79.631 Pain in right forearm; Z91.018 Allergy to other foods; Z91.048 Other nonmedicinal substance allergy status; Z87.828 Personal history of other (healed) physical injury and trauma
CPT/HCPCS: 99283

== ENCOUNTER → 2021-08-18 | Outpatient (CLI) | payer OTHER | LOC: LABWHC1 14:05 | PROVIDERS: ATTEND Family Medicine | DX: U07.1 COVID-19 (principal); B34.9 Viral infection, unspecified | CPT/HCPCS: 87502; U0003; C9803; U0005 ==

== ENCOUNTER 2022-10-07 17:00 | Emergency (ER) | payer OTHER ==
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
[2022-10-07] MEDS ORDERED: SODIUM CHLORIDE 0.9% 1,000 ML IV STA (17:24)
[2022-10-07] MEDS ORDERED: METOCLOPRAMIDE 5 MG/ML 2 ML VIAL IVP STA (17:24)
[2022-10-07] MEDS ORDERED: diphenhydrAMINE 50 MG/ML 1 ML VIAL IVP STA (17:24)
[2022-10-07 17:53] LABS: Basophils % (A) 0 %; Eosinophils # (A) 0.1 k/uL (0-0.7); Eosinophils % (A) 1 %; HGB 14.4 gm/dL (11.4-16.0); Lymphocytes # (A) 1.9 k/uL (1.0-4.8); Lymphocytes % (A) 19 %; MCH 32.7 pg (25.0-35.0); MCV 93.5 fL (80.0-100.0); Mean Platelet Volume 7.5; Monocytes # (A) 0.5 k/uL (0-1.0); Monocytes % (A) 5 %; Neutrophils # (A) 7.1 k/uL (1.3-7.7); Neutrophils % (A) 73 %; Platelet Count 391 k/uL (150-450); RBC 4.39 m/uL (3.80-5.40); RDW 12.5 % (11.5-15.5); WBC 9.7 k/uL (3.8-10.6)
[2022-10-07 17:57] LABS: Appearance,Urine Clear (Clear); Bilirubin,Urine Negative (Negative); Blood,Urine Negative (Negative); Color,Urine Light Yellow; Glucose,Urine (UA) Negative (Negative); Ketones,Urine Negative (Negative); Leukocyte Esterase,Urine Negative (Negative); Nitrite,Urine Negative (Negative); PH, Urine 6.5 (5.0-8.0); Protein,Urine Negative (Negative); Specific Gravity,Urine 1.014 (1.001-1.035); Urobilinogen,Urine <2.0 mg/dL (<2.0)
[2022-10-07 17:58] LABS: HCG,Qualitative Serum Detected
[2022-10-07 18:05] LABS: ALT 19 U/L (4-34); AST 24 U/L (14-36); African American GFR (CKD) >90 (>60 ml/min/1.73 sqM); Albumin 4.2 g/dL (3.5-5.0); Alkaline Phosphatase 54 U/L (38-126); Anion Gap 6 mmol/L; Blood Urea Nitrogen 11 mg/dL (7-17); Calcium 9.1 mg/dL (8.4-10.2); Carbon Dioxide 26 mmol/L (22-30); Chloride 106 mmol/L (98-107); Glucose 98 mg/dL (74-99); Lipase 58 U/L (23-300); Non-African American GFR(CKD) >90 (>60 ml/min/1.73 sqM); Potassium 3.7 mmol/L (3.5-5.1); Sodium 138 mmol/L (137-145); Total Bilirubin 0.4 mg/dL (0.2-1.3); Total Protein 6.9 g/dL (6.3-8.2)
[2022-10-07 19:59] VITALS: BP 105/77; PULSE 85; RESP 16; TEMP 97.8
== END 2022-10-07 20:05 | disposition home or self-care (01) ==
LOC: EC 17:00
DX: R11.2 Nausea with vomiting, unspecified (principal); R51.9 Headache, unspecified; F12.90 Cannabis use, unspecified, uncomplicated; Z91.018 Allergy to other foods
CPT/HCPCS: 36415; 80053; 83690; 85025; 81003; 84703; 84702; 99284; 96374; 96375; 96361; J1200; J2765

== ENCOUNTER 2024-08-07 12:53 | Emergency (ER) | payer OTHER ==
[2024-08-07 13:13] VITALS: TEMP 100.1
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
[2024-08-07 14:10] LABS: ALT 17 U/L (4-34); AST 20 U/L (14-36); African American GFR (CKD) >90 (>60 ml/min/1.73 sqM); Albumin 4.1 g/dL (3.5-5.0); Alkaline Phosphatase 50 U/L (38-126); Amylase 53 U/L (30-110); Anion Gap 11 mmol/L; Basophils % (A) 0 %; Blood Urea Nitrogen 8 mg/dL (7-17); Calcium 8.9 mg/dL (8.4-10.2); Carbon Dioxide 21 mmol/L (22-30); Chloride 104 mmol/L (98-107); Eosinophils % (A) 0 %; Glucose 106 mg/dL (74-99); HCT 39.6 % (34.0-46.0); HGB 13.4 gm/dL (11.4-16.0); Lipase 20 U/L (23-300); Lymphocytes # (A) 0.6 k/uL (1.0-4.8); Lymphocytes % (A) 5 %; MCH 31.4 pg (25.0-35.0); MCHC 33.8 g/dL (31.0-37.0); MCV 92.9 fL (80.0-100.0); Mean Platelet Volume 8.2; Monocytes # (A) 0.7 k/uL (0-1.0); Monocytes % (A) 6 %; Neutrophils # (A) 10.9 k/uL (1.3-7.7); Neutrophils % (A) 88 %; Non-African American GFR(CKD) >90 (>60 ml/min/1.73 sqM); Platelet Count 206 k/uL (150-450); Potassium 3.7 mmol/L (3.5-5.1); RBC 4.26 m/uL (3.80-5.40); RDW 12.6 % (11.5-15.5); Sodium 136 mmol/L (137-145); Total Bilirubin 0.6 mg/dL (0.2-1.3); Total Protein 6.7 g/dL (6.3-8.2); WBC 12.3 k/uL (3.8-10.6)
[2024-08-07 15:19] LABS: Appearance,Urine Cloudy (Clear); Bacteria,Urine Occasional /hpf; Bilirubin,Urine Negative (Negative); Blood,Urine Small (Negative); Color,Urine Colorless; Glucose,Urine (UA) Negative (Negative); Ketones,Urine Negative (Negative); Leukocyte Esterase,Urine Small (Negative); Mucus,Urine Occasional /hpf; Nitrite,Urine Negative (Negative); PH, Urine 5.5 (5.0-8.0); Protein,Urine Negative (Negative); RBC,Urine 11 /hpf (0-5); Squamous Epithelial Cell,Urine 6 /hpf (0-4); Urobilinogen,Urine <2.0 mg/dL (<2.0); WBC,Urine 14 /hpf (0-5)
[2024-08-07] MEDS: KETOROLAC 15 MG/ML 1 ML VIAL IVP STA (17:00)
[2024-08-07] MEDS: ONDANSETRON 4 MG/2 ML VIAL IVP STA (17:03)
[2024-08-07] MEDS: ACETAMINOPHEN TAB 325 MG TAB PO STA (17:04)
[2024-08-07] MEDS: SODIUM CHLORIDE 0.9% 1,000 ML IV ONE (17:05)
[2024-08-07] MEDS: cefTRIAXone IN SWFI 1,000 MG/10 ML SYRINGE IVP STA (17:05)
[2024-08-07 18:10] VITALS: BP 118/80; PULSE 99; RESP 18
== END 2024-08-07 18:09 | disposition home or self-care (01) ==
LOC: EC 12:53
CPT/HCPCS: 36415; 80053; 81001; 81025; 82150; 83605; 83690; 85025; 87077; 87086; 87186; 87636; 96374; 96375; 99284

== ENCOUNTER 2025-03-26 19:18 | Emergency (ER) | payer OTHER ==
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
[2025-03-26] MEDS: KETOROLAC 15 MG/ML 1 ML VIAL IM STA (21:42)
[2025-03-26] MEDS: MORPHINE SULFATE 4 MG/ML SYRINGE IM STA (21:44)
[2025-03-26] MEDS: MORPHINE SULFATE 4 MG/ML SYRINGE IVP STA (21:47)
[2025-03-26] MEDS: KETOROLAC 15 MG/ML 1 ML VIAL IVP STA (21:47)
[2025-03-26 22:19] VITALS: BP 107/71; PULSE 71; RESP 16; TEMP 98.4
== END 2025-03-26 22:15 | disposition home or self-care (01) ==
LOC: EC 19:18
DX: S13.4XXA Sprain of ligaments of cervical spine, initial encounter (principal); Z91.011 Allergy to milk products; Z88.8 Allergy status to other drugs, medicaments and biological substances; V89.2XXA Person injured in unspecified motor-vehicle accident, traffic, initial encounter; Y92.410 Unspecified street and highway as the place of occurrence of the external cause
CPT/HCPCS: 72128; 72125; 70450; 99284; 96372; J2270; J1885